=== PATIENT | male | born 1965 | race Caucasian/White ===

== ENCOUNTER 2021-02-04 02:43 | Emergency (ER) | payer BC ==
[~2021-02-04] VITALS: Ht 177.8 cm; Wt 99.8 kg
[~2021-02-04 02:43] MED LIST: Farxiga PO; JANUMET 50-5001 EACH PO; ZESTRIL10 MG PO
== END 2021-02-04 03:15 | disposition home or self-care (01) ==
LOC: ER 03:00
DX: L03.211 Cellulitis of face (principal); I10 Essential (primary) hypertension; E11.9 Type 2 diabetes mellitus without complications
CPT/HCPCS: 99283

== ENCOUNTER 2021-03-07 18:02 | Emergency (ER) | payer BC ==
[~2021-03-07] VITALS: Ht 177.8 cm; Wt 99.8 kg
== END 2021-03-07 19:36 | disposition home or self-care (01) ==
LOC: ER 19:33
DX: L03.211 Cellulitis of face (principal); I10 Essential (primary) hypertension; E11.9 Type 2 diabetes mellitus without complications; E78.5 Hyperlipidemia, unspecified
CPT/HCPCS: 99282

== ENCOUNTER 2021-05-11 18:01 | Emergency (ER) | payer BC ==
[~2021-05-11] VITALS: Ht 177.8 cm; Wt 94.1 kg
[2021-05-11] MEDS ORDERED: CEPHALEXIN500 MG PO (19:14)
[2021-05-11] MEDS ORDERED: CEFAZOLIN SOD 1 GM/NS 50ML 50 ML IV ONE (19:15)
[2021-05-11] MEDS ORDERED: CLEOCIN HCL300 MG PO (19:16)
[2021-05-11] MEDS ORDERED: CEFAZOLIN SOD 1 GM VIAL ONE (19:24)
== END 2021-05-11 20:20 | disposition home or self-care (01) ==
LOC: FSED 20:02
DX: L03.211 Cellulitis of face (principal); R50.9 Fever, unspecified; E11.65 Type 2 diabetes mellitus with hyperglycemia; I10 Essential (primary) hypertension; E78.5 Hyperlipidemia, unspecified
CPT/HCPCS: 80053; 85025; 99283; J0690

== ENCOUNTER 2021-10-17 18:04 | Emergency (ER) | payer BC ==
[~2021-10-17] VITALS: Ht 154.9 cm; Wt 95.3 kg
[~2021-10-17 18:04] MED LIST changes: +CEPHALEXIN500 MG PO; +CLEOCIN HCL300 MG PO
[2021-10-17] MEDS ORDERED: LIDOCAINE 1% W/EPINEPHRINE 20 ML VIAL INJ ONE (18:45)
[2021-10-17] MEDS ORDERED: LIDOCAINE 1% W/EPINEPHRINE 20 ML VIAL ONE (18:50)
[2021-10-17] MEDS ORDERED: CLEOCIN HCL150 MG PO (19:19)
[2021-10-17 19:24] VITALS: BP 187/101
== END 2021-10-17 19:24 | disposition home or self-care (01) ==
LOC: FSED 18:30
DX: L02.11 Cutaneous abscess of neck (principal); I10 Essential (primary) hypertension; E11.9 Type 2 diabetes mellitus without complications
CPT/HCPCS: 99283